=== PATIENT | female | born 1970 | race Caucasian/White ===

== ENCOUNTER 2022-03-10 13:11 | Inpatient (IN) | payer MEDICAID, MEDICARE, OTHER ==
[2022-03-10] MEDS ORDERED: Haloperidol Lactate 5 MG/ML SDV IVPUSH ONE (14:06)
[2022-03-10] MEDS ORDERED: LORazepam 2 MG/ML SDV IVPUSH ONE (14:07)
[2022-03-10] MEDS ORDERED: Dextrose 5% in Water 1,000 ML IV SCH (14:15)
[2022-03-10] MEDS ORDERED: Haloperidol Lactate 5 MG/ML SDV IM ONE (14:20)
[2022-03-10] MEDS ORDERED: LORazepam 2 MG/ML SDV IM ONE (14:20)
[2022-03-10 14:38] LABS: ESTIMATED GFR 39 mL/min (>60)
[2022-03-10] MEDS ORDERED: Lactated Ringers 1,000 ML ONE (18:56)
[2022-03-10] MEDS ORDERED: Lactated Ringers 1,000 ML IV ONE (19:00)
[2022-03-10] MEDS ORDERED: Heparin Sodium 5,000 Units/ML Vial SUBCUT ONE (21:00)
[2022-03-10] MEDS ORDERED: Dextrose 5% in Water 1,000 ML IV ONE (21:10)
[2022-03-10] MEDS ORDERED: Heparin Sodium 5,000 Units/ML Vial ONE (21:43)
[2022-03-11] MEDS ORDERED: OLANZapine 5 MG Tab ONE ×3 (03:23→20:17)
[2022-03-11] MEDS ORDERED: OLANZapine 5 MG Tab PO ONE ×2 (03:30→21:10)
[2022-03-11] MEDS ORDERED: Heparin Sodium 5,000 Units/ML Vial SUBCUT ONE (09:00)
[2022-03-11] MEDS ORDERED: Heparin Sodium 5,000 Units/ML Vial ONE ×2 (09:19→20:16)
[2022-03-11] MEDS ORDERED: Sodium Chloride 0.9% 1,000 ML ONE (11:40)
[2022-03-11] MEDS ORDERED: Sodium Chloride 0.9% 1,000 ML IV ONE (11:42)
[2022-03-11] MEDS ORDERED: Naltrexone 50 MG Tab ONE (20:16)
[2022-03-11] MEDS ORDERED: Benztropine 1 MG Tab ONE (20:16)
[2022-03-11] MEDS ORDERED: Topiramate 100 MG Tab ONE (20:16)
[2022-03-11] MEDS ORDERED: Sennosides 8.6 MG Tab ONE (20:17)
[2022-03-11] MEDS ORDERED: Prazosin 1 MG Cap ONE (20:17)
[2022-03-11] MEDS ORDERED: Topiramate 25 MG Tab PO ONE (21:00)
[2022-03-11] MEDS ORDERED: Prazosin 1 MG Cap PO ONE (21:00)
[2022-03-11] MEDS ORDERED: Benztropine 1 MG Tab PO ONE (21:00)
[2022-03-11] MEDS ORDERED: Naltrexone 50 MG Tab PO ONE (21:10)
[2022-03-12] MEDS ORDERED: Sodium Chloride 0.9% 1,000 ML ONE (00:43)
[2022-03-12] MEDS ORDERED: Naltrexone 50 MG Tab ONE ×2 (08:55→20:15)
[2022-03-12] MEDS ORDERED: Benztropine 1 MG Tab ONE ×2 (08:55→20:15)
[2022-03-12] MEDS ORDERED: Topiramate 25 MG Tab ONE ×2 (08:55→20:15)
[2022-03-12] MEDS ORDERED: Dextrose 5% in Water 1,000 ML ONE (08:55)
[2022-03-12] MEDS ORDERED: Sennosides 8.6 MG Tab ONE ×2 (08:55→20:15)
[2022-03-12] MEDS ORDERED: Naltrexone 50 MG Tab PO ONE (09:00)
[2022-03-12] MEDS ORDERED: Benztropine 1 MG Tab PO ONE (09:00)
[2022-03-12] MEDS ORDERED: Dextrose 5% in Water 1,000 ML IV ONE (09:00)
[2022-03-12] MEDS ORDERED: Topiramate 25 MG Tab PO ONE (09:00)
[2022-03-12] MEDS ORDERED: OLANZapine 5 MG Tab ONE ×2 (10:58→20:16)
[2022-03-12] MEDS ORDERED: OLANZapine 5 MG Tab PO ONE ×2 (11:00→21:00)
[2022-03-12] MEDS ORDERED: Prazosin 1 MG Cap ONE (20:15)
[2022-03-12] MEDS ORDERED: Prazosin 1 MG Cap PO ONE (21:00)
[2022-03-13] MEDS ORDERED: OLANZapine 5 MG Tab ONE (03:33)
[2022-03-13] MEDS ORDERED: OLANZapine 5 MG Tab PO ONE ×2 (04:00→21:10)
[2022-03-13] MEDS ORDERED: Naltrexone 50 MG Tab ONE (08:45)
[2022-03-13] MEDS ORDERED: Topiramate 25 MG Tab ONE (08:45)
[2022-03-13] MEDS ORDERED: Sennosides 8.6 MG Tab ONE (08:45)
[2022-03-13] MEDS ORDERED: Benztropine 1 MG Tab ONE (08:45)
[2022-03-13] MEDS ORDERED: Topiramate 25 MG Tab PO ONE (09:00)
[2022-03-13] MEDS ORDERED: Benztropine 1 MG Tab PO ONE (09:00)
[2022-03-13] MEDS ORDERED: Naltrexone 50 MG Tab PO ONE (09:00)
[2022-03-13] MEDS ORDERED: Dextrose 5% in Water 1,000 ML ONE (16:13)
[2022-03-13] MEDS ORDERED: Prazosin 1 MG Cap PO ONE (21:10)
[2022-03-14] MEDS ORDERED: OLANZapine 5 MG Tab ONE (04:41)
[2022-04-10 09:38] LABS: ESTIMATED GFR 50 mL/min (>60)
[2022-04-17 14:56] LABS: ESTIMATED GFR 46 mL/min (>60)
[2022-04-17 15:09] LABS: ESTIMATED GFR 89 mL/min (>60)
[2022-04-19 11:39] LABS: ESTIMATED GFR 89 mL/min (>60)
[2022-04-20 10:28] LABS: ESTIMATED GFR 68 mL/min (>60)
== END 2022-03-21 15:01 | DRG 640 ==
LOC: JD.ED 13:11 → JD.MS 15:51 → JD.ZCENSUS 03-21 15:01
PROVIDERS: ADMIT Hospitalist; ATTEND Hospitalist
DX: E87.0 Hyperosmolality and hypernatremia (principal); G93.41 Metabolic encephalopathy; N17.9 Acute kidney failure, unspecified; F60.9 Personality disorder, unspecified; F31.9 Bipolar disorder, unspecified; F45.1 Undifferentiated somatoform disorder; Z20.822 Contact with and (suspected) exposure to COVID-19; B95.62 Methicillin resistant Staphylococcus aureus infection as the cause of diseases classified elsewhere; D69.6 Thrombocytopenia, unspecified; R41.83 Borderline intellectual functioning; E86.0 Dehydration; E83.52 Hypercalcemia; F25.9 Schizoaffective disorder, unspecified; I10 Essential (primary) hypertension; R62.50 Unspecified lack of expected normal physiological development in childhood; Z79.899 Other long term (current) drug therapy
CPT/HCPCS: 36415; 71045; 71045-26; 80048; 80053; 80061; 80076; 80306; 81003; 82140; 83735; 83930; 83935; 83970; 84295; 84439; 84443; 85025; 87641; 96372; 99223; 99232; 99238; 99284; 99285; A9270-GY; J1630; J1644; J2060; J7030; J7060; J7120; U0002